=== PATIENT | male | born 2000 | race Asian ===

== ENCOUNTER 2024-01-13 03:03 | Emergency (ER) | payer BC, MEDICAID ==
[~2024-01-13] VITALS: Ht 170.2 cm; Wt 73.0 kg
[2024-01-13 03:31] VITALS: O2SAT 98
[2024-01-13] MEDS: KETOROLAC 60MG/2ML VIAL IM ONE (06:11)
[2024-01-13 08:59] VITALS: BP 140/99; PULSE 59; RESP 16; TEMP 98.1
== END 2024-01-13 11:25 | disposition home or self-care (01) ==
LOC: ER 03:03
DX: R52 Pain, unspecified (principal); V49.9XXA Car occupant (driver) (passenger) injured in unspecified traffic accident, initial encounter; Y93.89 Activity, other specified; Y92.89 Other specified places as the place of occurrence of the external cause; Y99.8 Other external cause status
CPT/HCPCS: 71045; 96372; 99283; J1885; Z7610